=== PATIENT | male | born 1995 | race African-American/Black ===

== ENCOUNTER 2019-06-17 08:37 | Emergency (ER) | payer MEDICAID ==
[~2019-06-17] VITALS: Ht 170.2 cm; Wt 59.0 kg
[2019-06-17] MEDS ORDERED: ONDANSETRON HCL 4MG/2ML INJ IV STA ×2 (09:15→15:03)
[2019-06-17] MEDS ORDERED: SODIUM CHLORIDE 0.9% 1,000 ML IV ONE ×2 (09:15→11:45)
[2019-06-17 10:00] LABS: BASOPHILS % 1.1 % (0.0-2.0); EOSINOPHILS % 4.8 % (0.0-5.0); HEMATOCRIT. 45.5 % (42.0-52.0); MEAN CORPUSCULAR HEMOGLOBIN 27.3 pg (28.0-32.0); MEAN CORPUSCULAR VOLUME 82.7 fL (80.0-94.0); MEAN PLATELET VOLUME 7.6 fl (7.4-10.4); MONOCYTES % 7.4 % (2.0-8.0); NEUTROPHILS % 58.7 % (40.0-76.0); PLATELET 284 x1000/uL (130-400)
[2019-06-17 10:08] LABS: CHLORIDE 106 mEq/L (98-107)
[2019-06-17] MEDS ORDERED: ONDANSETRON HCL 4MG/2ML INJ IV ONE (11:00)
[2019-06-17] MEDS ORDERED: METOCLOPRAMIDE HCL 10MG/2ML VIAL IV ONE ×2 (11:45→13:15)
[2019-06-17 11:51] LABS: CLARITY URINE CLEAR (CLEAR); COLOR URINE YELLOW (YELLOW); KETONES URINE NEGATIVE (NEGATIVE); LEUKOCYTE ESTERASE URINE NEGATIVE (NEGATIVE); NITRITE URINE NEGATIVE (NEGATIVE); OCCULT BLOOD URINE NEGATIVE (NEGATIVE); PH URINE 8.5 (4.5-8.0); PROTEIN URINE NEGATIVE (NEGATIVE); SPECIFIC GRAVITY URINE 1.019 (1.005-1.030); UROBILINOGEN URINE 0.2 E.U./dL (0.2-1.0)
[2019-06-17 12:35] LABS: *AMPHETAMINES SCREEN URINE NEGATIVE (NEGATIVE); *BARBITURATES SCREEN URINE NEGATIVE (NEGATIVE); *BENZODIAZEPINES SCREEN URINE NEGATIVE (NEGATIVE); *COCAINE SCREEN URINE NEGATIVE (NEGATIVE); METHADONE URINE SCREEN NEGATIVE (NEGATIVE); OPIATES URINE SCREEN NEGATIVE (NEGATIVE)
[2019-06-17 12:36] LABS: CANNABINOID URINE SCREEN PRESUMTIVE POSITIVE (NEGATIVE); PHENCYCLIDINE URINE SCREEN NEGATIVE (NEGATIVE)
[2019-06-17] MEDS ORDERED: KETOROLAC 30MG/ML VIAL IV STA (15:08)
[2019-06-17] MEDS ORDERED: FAMOTIDINE 20MG/2ML VIAL IV ONE (15:15)
[2019-06-17 16:34] VITALS: BP 122/78
== END 2019-06-17 17:30 | disposition home or self-care (01) ==
LOC: ER 08:50
DX: K52.9 Noninfective gastroenteritis and colitis, unspecified (principal)
CPT/HCPCS: 36415; 80053; 80305; 81003; 83690; 85025; 96361; 96374; 96375; 96376; 99283; J1885; J2405; J2765; J3490; J7030; Z7610